=== PATIENT | male | born 1960 | race American Indian/Alaskan Native ===

== ENCOUNTER 2017-09-22 17:11 | Emergency (ER) | payer OTHER, MEDICAID ==
[2017-09-22 17:47] VITALS: BP 120/70
[2017-09-22] MEDS ORDERED: ASPIRIN PO ONE (17:47)
[2017-09-23] MEDS ORDERED: NITROGLYCERIN SYRINGE 0 ML ONE (09:38)
[2017-09-23] MEDS ORDERED: XYLOCAINE 2% INFILTRATI ONE (09:38)
[2017-09-23] MEDS ORDERED: HEPARIN/NS 5000 UNIT/500ML(CATH LAB) 0 ML IR ONE (09:38)
[2017-09-23] MEDS ORDERED: CALAN ONE (09:38)
[2017-09-23] MEDS ORDERED: HEPARIN 10,000 UNITS/10 ML ONE (09:38)
[2017-09-23] MEDS ORDERED: VERSED ONE (09:39)
[2017-09-23] MEDS ORDERED: SUBLIMAZE ONE (09:39)
== END 2017-09-22 23:44 | disposition left against medical advice (07) ==
LOC: ED 17:11
DX: R07.89 Other chest pain (principal); Z53.21 Procedure and treatment not carried out due to patient leaving prior to being seen by health care provider
CPT/HCPCS: 93005; 93010; J1644; J2250; J3010

== ENCOUNTER 2018-04-02 08:24 | Inpatient (IN) | payer MEDICAID ==
[2018-04-02] MEDS ORDERED: ASPIRIN PO ONE (09:18)
--- NOTE | 2018-04-02 09:24 | Emergency Department Report ---
Blank Doc - Documentation Documentation: Mr. Dee is 57 years old male history of hypertension, diabetes and DVT. Patient presented to the ER complaining of left leg pain and left shoulder pain and right chest pain associated with shortness of breath. Patient stated that he was diagnosed with DVT 2 years ago in his right leg and he had surgery for that and he was never been on any blood thinner before. Patient presentation is suspicious for PE, DVT or possibly coronary artery disease. Patient will need to be many in our main ED.
[2018-04-02 09:47] LABS: Basophils # (Auto) 0.1 K/mm3 (0.0-0.1); Eosinophils # (Auto) 0.2 K/mm3 (0.0-0.4); Eosinophils % (Auto) 3.1 % (0.0-4.3); Hematocrit 38.3 % (35.5-45.6); Hemoglobin 13.3 gm/dl (11.8-15.2); Lymphocytes % (Auto) 32.8 % (13.4-35.0); Mean Corpuscular HGB Conc 35 % (32-34); Mean Corpuscular Hemoglobin 33 pg (28-32); Mean Corpuscular Volume 96 fl (84-94); Monocytes # (Auto) 0.7 K/mm3 (0.0-0.8); Monocytes % (Auto) 11.3 % (0.0-7.3); Platelet Count 169 K/mm3 (140-440); Red Blood Count 4.01 M/mm3 (3.65-5.03); Red Cell Distribution Width 15.3 % (13.2-15.2)
[2018-04-02 09:59] LABS: INR 0.95 (0.87-1.13)
[2018-04-02 10:00] LABS: Partial Thromboplastin Time 36.2 Sec. (24.2-36.6)
[2018-04-02 10:19] LABS: Alanine Aminotransferase 12 units/L (7-56); BUN/Creatinine Ratio 14; Blood Urea Nitrogen 13 mg/dL (9-20); Calcium 9.7 mg/dL (8.4-10.2); Hemolysis Index 6
[2018-04-02 10:30] LABS: Chol/HDL Ratio 7.42 %; HDL Cholesterol 38 mg/dL (40-59); LDL Cholesterol,Direct 232 mg/dL (50-130)
[2018-04-02] MEDS ORDERED: LOVENOX SUB-Q ONE (10:31)
--- NOTE | 2018-04-02 10:41 | XRay Report ---
ROUTINE CHEST, TWO VIEWS: HISTORY: chest pain. The trachea, heart, mediastinal contour, lung flower and bony thorax are unremarkable. IMPRESSION: Unremarkable chest x-ray.
--- NOTE | 2018-04-02 10:54 | Emergency Department Report ---
ED Chest Pain HPI - General Chief Complaint: Extremity Problem,Nontraumatic Stated Complaint: CHEST PAIN/LEG PAIN Time Seen by Provider: 04/02/18 09:14 Source: patient Mode of arrival: Ambulatory Limitations: No Limitations - History of Present Illness Initial Comments: 57-year-old male with a past medical history of obesity, hypertension, DVT 2 years ago (2015) presents to the hospital complains of pain to left leg times approximately 4 days. Pain is constant and worse with ambulation remained moderate to severe in intensity. Patient also states he is having a right sided chest pain and shortness of breath with exertion. He complains of chronic left shoulder pain secondary to previous injury. Patient is a history of DVT 2 years ago that he states was treated with a procedure he did not require anticoagulation. He denies recent long distance travel - Related Data Home Medications Medication Instructions Recorded Confirmed Last Taken Lisinopril/Hydrochlorothiazide 1 tab PO DAILY 04/02/18 04/02/18 Unknown [Zestoretic 20-25 mg] amLODIPine [Norvasc] 10 mg PO DAILY 04/02/18 04/02/18 Unknown Allergies Allergy/AdvReac Type Severity Reaction Status Date / Time No Known Allergies Allergy Verified 09/23/17 10:39 Heart Score - HEART Score History: Slightly suspicious EKG: Normal Age: 45-65 Risk factors: 1-2 risk factors Troponin: 1-3x normal limit HEART Score: 3 ED Review of Systems ROS: Stated complaint: CHEST PAIN/LEG PAIN Other details as noted in HPI Comment: All other systems reviewed and negative ED Past Medical Hx - Past Medical History Previous Medical History?: Yes Hx Hypertension: Yes Additional medical history: Hx of DVT - Social History Smoking Status: Current Every Day Smoker Substance Use Type: Alcohol - Medications Home Medications: Home Medications Medication Instructions Recorded Confirmed Last Taken Type Lisinopril/Hydrochlorothiazide 1 tab PO DAILY 04/02/18 04/02/18 Unknown History [Zestoretic 20-25 mg] amLODIPine [Norvasc] 10 mg PO DAILY 04/02/18 04/02/18 Unknown History ED Physical Exam - General Limitations: No Limitations - Other Other exam information: General: No limitations, patient is alert in no acute distress Head exam: Atraumatic, normocephalic Eyes exam: Normal appearance ENT: Moist mucous membrane, normal oropharynx Neck exam: Normal inspection, full range of motion, no meningismus nontender Respiratory exam: Bilateral rhonchi, chest wall nontender Cardiovascular: Normal rate and rhythm, normal heart sounds Abdomen: Soft, nondistended, and nontender, with normal bowel sounds, no rebound, or, left Swelling and tenderness posterior left thigh, popliteal, left Area. 2+ DP pulse equal bilaterally. Extremity: Pain with left shoulder mvt, no deformity Back: Normal Inspection, full range of motion, no tenderness Neurologic: Alert, oriented x3, cranial nerves intact, no motor or sensory deficit Psychiatric: normal affect, normal mood Skin: Warm, dry, intact ED Course Vital Signs 04/02/18 04/02/18 04/02/18 08:35 10:29 10:30 Temperature 97.8 F Pulse Rate 77 Respiratory 18 Rate Blood Pressure 163/99 141/73 141/73 Blood Pressure [Left] O2 Sat by Pulse 100 99 99 Oximetry 04/02/18 04/02/18 04/02/18 10:46 11:13 11:15 Temperature Pulse Rate 57 L 67 63 Respiratory 10 L 24 12 Rate Blood Pressure 141/73 Blood Pressure [Left] O2 Sat by Pulse 98 98 98 Oximetry 04/02/18 04/02/18 04/02/18 11:22 11:44 11:46 Temperature Pulse Rate Respiratory Rate Blood Pressure 154/89 154/89 Blood Pressure 141/73 [Left] O2 Sat by Pulse 99 100 Oximetry 04/02/18 04/02/18 04/02/18 11:59 12:00 12:16 Temperature Pulse Rate 58 L Respiratory 18 Rate Blood Pressure 154/89 154/89 Blood Pressure 154/89 [Left] O2 Sat by Pulse 99 98 99 Oximetry 04/02/18 04/02/18 04/02/18 12:30 12:46 13:00 Temperature Pulse Rate Respiratory Rate Blood Pressure 154/89 124/74 124/74 Blood Pressure [Left] O2 Sat by Pulse 96 100 95 Oximetry 04/02/18 04/02/18 04/02/18 13:16 13:30 13:46 Temperature Pulse Rate Respiratory Rate Blood Pressure 124/74 124/74 125/82 Blood Pressure [Left] O2 Sat by Pulse 99 98 96 Oximetry 04/02/18 04/02/18 04/02/18 14:00 14:16 14:30 Temperature Pulse Rate Respiratory Rate Blood Pressure 125/82 125/82 125/82 Blood Pressure [Left] O2 Sat by Pulse 99 99 96 Oximetry 04/02/18 14:55 Temperature Pulse Rate 64 Respiratory 18 Rate Blood Pressure Blood Pressure [Left] O2 Sat by Pulse 95 Oximetry - Consultations Consultation #1: 04/02/18 11:30 Case d/w Dr berry (vascular), will consult BRIGHT score - Bright Score Age > 65: (0) No Aspirin use within the Past 7 Days: (0) No 3 or more CAD Risk Factors: (0) No 2 or more Angina events in past 24 hrs: (0) No Known CAD with more than 50% Stenosis: (0) No Elevated Cardiac Markers: (1) Yes ST Deviation Greater than 0.5mm: (0) No BRIGHT Score: 1 ED Medical Decision Making - Lab Data Result diagrams: 04/02/18 09:26 04/02/18 09:26 Lab Results 04/02/18 04/02/18 04/02/18 Range/Units 09:26 09:26 09:26 WBC 6.0 (4.5-11.0) K/mm3 RBC 4.01 (3.65-5.03) M/mm3 Hgb 13.3 (11.8-15.2) gm/dl Hct 38.3 (35.5-45.6) % MCV 96 H (84-94) fl MCH 33 H (28-32) pg MCHC 35 H (32-34) % RDW 15.3 H (13.2-15.2) % Plt Count 169 (140-440) K/mm3 Lymph % (Auto) 32.8 (13.4-35.0) % [place] % (Auto) 11.3 H (0.0-7.3) % Eos % (Auto) 3.1 (0.0-4.3) % Baso % (Auto) 1.0 (0.0-1.8) % Lymph # 2.0 (1.2-5.4) K/mm3 [place] # 0.7 (0.0-0.8) K/mm3 Eos # 0.2 (0.0-0.4) K/mm3 Baso # 0.1 (0.0-0.1) K/mm3 Seg Neutrophils % 51.8 (40.0-70.0) % Seg Neutrophils # 3.1 (1.8-7.7) K/mm3 PT 13.1 (12.2-14.9) Sec. INR 0.95 (0.87-1.13) APTT 36.2 (24.2-36.6) Sec. D-Dimer 4784.41 H (0-234) ng/mlDDU Sodium 142 (137-145) mmol/L Potassium 4.0 (3.6-5.0) mmol/L Chloride 103.7 (98-107) mmol/L Carbon Dioxide 25 (22-30) mmol/L Anion Gap 17 mmol/L BUN 13 (9-20) mg/dL Creatinine 0.9 (0.8-1.5) mg/dL Estimated GFR > 60 ml/min BUN/Creatinine Ratio 14 % Glucose 81 (75-100) mg/dL Calcium 9.7 (8.4-10.2) mg/dL Total Bilirubin 0.40 (0.1-1.2) mg/dL AST 13 (5-40) units/L ALT 12 (7-56) units/L Alkaline Phosphatase 89 (35-129) units/L Troponin T 0.038 H (0.00-0.029) ng/mL Total Protein 7.4 (6.3-8.2) g/dL Albumin 4.0 (3.9-5) g/dL Albumin/Globulin Ratio 1.2 % Triglycerides 98 (2-149) mg/dL Cholesterol 282 H (50-199) mg/dL LDL Cholesterol Direct 232 H (50-130) mg/dL HDL Cholesterol 38 L (40-59) mg/dL Cholesterol/HDL Ratio 7.42 % - EKG Data -: EKG Interpreted by [facility] EKG shows normal: sinus rhythm, axis (qrs 43), QRS complexes (qrsd 74), ST-T waves (no stemi/t inv) Rate: normal (69) - Radiology Data Radiology results: report reviewed ROUTINE CHEST, TWO VIEWS: HISTORY: chest pain. The trachea, heart, mediastinal contour, lung jarquin and bony thorax are unremarkable. IMPRESSION: Unremarkable chest x-ray. VASCULAR LAB.PRELIMINARY REPORT. LLE VENOUS DUPLEX DONE. EVIDENCE OF ACUTE DVT IN THE LT.MID SFV EXTENDING ALL THE WAY DOWN TO THE LT.PTV/PERONEAL VEINS AT DISTAL CALF. INFORMED AT 0951. CTA CHEST: HISTORY: Chest pain, shortness of breath. COMPARISON: Chest x-ray performed the same day. TECHNIQUE: Helical CT in 1.25mm intervals following IV contrast. Pulmonary embolus protocol. Sagittal and coronal reformatted images. Rotational MIP images. FINDINGS: Contrast bolus is satisfactory. Nonocclusive pulmonary emboli are identified in the second and third order branches of the left lower lobe, lingula and right lower lobe. No large saddle or occlusive embolus. Thyroid gland: Normal. Tracheobronchial tree: Normal. Esophagus: Normal. Heart: Normal. Pericardium: Normal. Mediastinum: Normal. Lung Jarquin: normal. Pleural Spaces: Normal. Musculoskeletal: Normal. IMPRESSION: Positive for pulmonary embolus as described above. These findings were discussed with Dr. Blum in the emergency apartment at 1150 hrs. - Medical Decision Making Positive acute left leg DVT. Lovenox given. Asa was given prior to my evaluation. Patient will require admission to the hospital Vascular consulted given size of clot ct angio: + bialteral PE (no saddle) Hospitalist informed - Differential Diagnosis dvt, strain, atypical cp, pe, mi, pneumothorax Critical Care Time: No Critical care attestation.: If time is entered above; I have spent that time in minutes in the direct care of this critically ill patient, excluding procedure time. ED Disposition Clinical Impression: Acute deep vein thrombosis (DVT) of left lower extremity, Bilateral pulmonary embolism, Elevated troponin HTN (hypertension) Qualifiers: Hypertension type: essential hypertension Qualified Code(s): I10 - Essential ( primary) hypertension Disposition: OP ADMIT IP TO THIS HOSP Is pt being admited?: Yes Condition: Stable Time of Disposition: 12:09 (Dr Dykes/hosp)
--- NOTE | 2018-04-02 12:10 | Cat Scan Report ---
CTA CHEST: HISTORY: Chest pain, shortness of breath. COMPARISON: Chest x-ray performed the same day. TECHNIQUE: Helical CT in 1.25mm intervals following IV contrast. Pulmonary embolus protocol. Sagittal and coronal reformatted images. Rotational MIP images. FINDINGS: Contrast bolus is satisfactory. Nonocclusive pulmonary emboli are identified in the second and third order branches of the left lower lobe, lingula and right lower lobe. No large saddle or occlusive embolus. Thyroid gland: Normal. Tracheobronchial tree: Normal. Esophagus: Normal. Heart: Normal. Pericardium: Normal. Mediastinum: Normal. Lung Jarquin: normal. Pleural Spaces: Normal. Musculoskeletal: Normal. IMPRESSION: Positive for pulmonary embolus as described above. These findings were discussed with Dr. Blum in the emergency apartment at 1150 hrs.
[2018-04-02] MEDS ORDERED: NORCO 5/325 PO ONE (12:13)
--- NOTE | 2018-04-02 12:35 | History and Physical Report ---
Medications and Allergies Allergies Allergy/AdvReac Type Severity Reaction Status Date / Time No Known Allergies Allergy Verified 09/23/17 10:39 Exam - Constitutional Vitals: Temp Pulse Resp BP Pulse Ox 97.8 F 58 L 18 154/89 99 04/02/18 08:35 04/02/18 11:59 04/02/18 11:59 04/02/18 11:59 04/02/18 11:59 Results - Labs CBC & Chem 7: 04/02/18 09:26 04/02/18 09:26 Labs: Abnormal lab results 04/02/18 04/02/18 04/02/18 Range/Units 09:26 09:26 09:26 MCV 96 H (84-94) fl MCH 33 H (28-32) pg MCHC 35 H (32-34) % RDW 15.3 H (13.2-15.2) % [place] % (Auto) 11.3 H (0.0-7.3) % D-Dimer 4784.41 H (0-234) ng/mlDDU Troponin T 0.038 H (0.00-0.029) ng/mL Cholesterol 282 H (50-199) mg/dL LDL Cholesterol Direct 232 H (50-130) mg/dL HDL Cholesterol 38 L (40-59) mg/dL
--- NOTE | 2018-04-02 12:50 | History and Physical Report ---
History of Present Illness Chief complaint: My leg hurts History of present illness: 57 YO Male with HTN, Obesity, History of DVT, Nicotine Dependence presents to ED for evaluation. Pt states that he has experienced pain in his Left leg with unilateral leg swelling for the past 4 days with persistent symptoms over the same time frame. Pt also acknowledges shortness of breath and chest discomfort associated with deep breathing. Pt denies fever, chills, palpitations, NVD, Syncope, productive cough, brbpr, unintentional weight loss, or night sweats. PT seen and evaluated in ED and found to have LLE DVT as well as Bilateral Pulmonary Emboli. Pt started on therapeutic anticoagulation and admitted to medical floor. Past History Past Medical History: DVT, hypertension Past Surgical History: No surgical history, Other (reviewed) Social history: smoking Family history: hypertension Medications and Allergies Allergies Allergy/AdvReac Type Severity Reaction Status Date / Time No Known Allergies Allergy Verified 09/23/17 10:39 Home Medications Medication Instructions Recorded Confirmed Last Taken Type Lisinopril/Hydrochlorothiazide 1 tab PO DAILY 04/02/18 04/02/18 Unknown History [Zestoretic 20-25 mg] amLODIPine [Norvasc] 10 mg PO DAILY 04/02/18 04/02/18 Unknown History Review of Systems Constitutional: no weight loss, no weight gain, no fever, no chills Ears, nose, mouth and throat: no ear pain, no ear discharge, no tinnitis, no decreased hearing, no nose pain, no nasal congestion Cardiovascular: shortness of breath, no palpitations Respiratory: shortness of breath, pleurisy, pain on inspiration, no hemoptysis Gastrointestinal: no abdominal pain, no nausea, no vomiting, no diarrhea, no constipation Genitourinary Male: no hematuria, no flank pain, no discharge, no urinary frequency, no urinary hesitancy, no nocturia Rectal: no pain, no incontinence, no bleeding Musculoskeletal: no neck stiffness, no neck pain, no shooting arm pain, no arm numbness/tingling, no low back pain, no shooting leg pain Integumentary: no rash, no pruritis, no redness, no sores, no wounds Neurological: no transient paralysis, no paralysis, no weakness, no parathesias , no numbness, no tingling Psychiatric: no anxiety, no memory loss, no change in sleep habits, no sleep disturbances, no insomnia, no hypersomnia, no change in appetite, no change in libido Endocrine: no cold intolerance, no heat intolerance, no polyphagia, no excessive thirst, no polydipsia, no polyuria Hematologic/Lymphatic: no easy bruising, no easy bleeding, no lymphadenopathy, no lymphedema Allergic/Immunologic: no urticaria, no allergic rhinitis, no wheezing, no persistent infections, no anaphylaxis Exam - Constitutional Vitals: Temp Pulse Resp BP Pulse Ox 97.8 F 58 L 18 154/89 99 04/02/18 08:35 04/02/18 11:59 04/02/18 11:59 04/02/18 11:59 04/02/18 11:59 General appearance: Present: mild distress, obese - EENT Eyes: Present: PERRL ENT: hearing intact, clear oral mucosa - Neck Neck: Present: supple, normal ROM - Respiratory Respiratory effort: normal Respiratory: bilateral: diminished - Cardiovascular Heart Sounds: Present: S1 & S2. Absent: rub, click - Extremities Extremities: pulses symmetrical, No edema Peripheral Pulses: within normal limits - Abdominal General gastrointestinal: Present: soft, non-tender, non-distended, normal bowel sounds Male genitourinary: Present: normal - Integumentary Integumentary: Present: clear, warm, dry - Musculoskeletal Musculoskeletal: gait normal, strength equal bilaterally - Psychiatric Psychiatric: appropriate mood/affect, intact judgment & insight - Neurologic Neurologic: CNII-XII intact, moves all extremities Results - Labs CBC & Chem 7: 04/02/18 09:26 04/02/18 09:26 Labs: Abnormal lab results 04/02/18 04/02/18 04/02/18 Range/Units 09:26 09:26 09:26 MCV 96 H (84-94) fl MCH 33 H (28-32) pg MCHC 35 H (32-34) % RDW 15.3 H (13.2-15.2) % [place] % (Auto) 11.3 H (0.0-7.3) % D-Dimer 4784.41 H (0-234) ng/mlDDU Troponin T 0.038 H (0.00-0.029) ng/mL Cholesterol 282 H (50-199) mg/dL LDL Cholesterol Direct 232 H (50-130) mg/dL HDL Cholesterol 38 L (40-59) mg/dL Assessment and Plan - Patient Problems (1) Respiratory failure Current Visit: Yes Status: Acute Qualifiers: Chronicity: acute Respiratory failure complication: hypoxia Qualified Code(s): J96.01 - Acute respiratory failure with hypoxia Plan to address problem: Supplemental oxygen, nebulizer therapy, NIPPV as clinically indicated, early ambulation, therapeutic anticoagulation. (2) Nicotine dependence unspecified, with withdrawal Current Visit: Yes Status: Acute Qualifiers: Nicotine product type: cigarettes Qualified Code(s): F17.213 - Nicotine dependence, cigarettes, with withdrawal Plan to address problem: smoking cessation counseling, (3) Acute deep vein thrombosis (DVT) of left lower extremity Current Visit: Yes Status: Acute Plan to address problem: Therapeutic anticoagulation, Vascular surgery consulted in ED (4) Bilateral pulmonary embolism Current Visit: Yes Status: Acute Plan to address problem: supplemental oxygen, nebulizer therapy, supportive care, Echo, therapeutic anticoagulation. (5) HTN (hypertension) Current Visit: Yes Status: Acute Qualifiers: Hypertension type: essential hypertension Qualified Code(s): I10 - Essential (primary) hypertension Plan to address problem: monitor bp q shift, continue medical management. (6) DVT prophylaxis Current Visit: Yes Status: Acute Plan to address problem: SCD to BLE while in bed
[2018-04-02] MEDS ORDERED: SODIUM CHLORIDE FLUSH SYRINGE 10 ML IV PRN (12:52)
[2018-04-02] MEDS ORDERED: PROVENTIL IH PRN (12:52)
[2018-04-02] MEDS ORDERED: TYLENOL PO PRN (12:52)
[2018-04-02] MEDS ORDERED: ZOFRAN IV PRN (12:52)
--- NOTE | 2018-04-02 13:21 | Consultation ---
History of Present Illness - Reason for Consult Consult date: 04/02/18 DVT Requesting physician: LILIYA LEON - History of Present Illness a 57-year-old male admitted to the emergency room for evaluation of left leg pain and shoulder pain. He underwent a venous ultrasound which revealed deep vein thrombosis of the lower extremity. He has a CT scan of the chest, which reveals pulmonary emboli. The patient has complaints of chest pain as well as lower extremity pain. He reportedly has a history of previous deep vein thrombosis. Past History Past Medical History: DVT Medications and Allergies Allergies Allergy/AdvReac Type Severity Reaction Status Date / Time No Known Allergies Allergy Verified 09/23/17 10:39 Active Meds: Active Medications Acetaminophen (Tylenol) 650 mg PO Q4H PRN PRN Reason: Pain MILD(1-3)/Fever >100.5/GONZALES Albuterol (Proventil) 2.5 mg IH Q4HRT PRN PRN Reason: Shortness Of Breath Ondansetron HCl (Zofran) 4 mg IV Q8H PRN PRN Reason: Nausea And Vomiting Sodium Chloride (Sodium Chloride Flush Syringe 10 Ml) 10 ml IV BID CRISTI Sodium Chloride (Sodium Chloride Flush Syringe 10 Ml) 10 ml IV PRN PRN PRN Reason: LINE FLUSH Review of Systems All systems: negative Exam - Constitutional Vitals: Temp Pulse Resp BP Pulse Ox 97.8 F 58 L 18 154/89 99 04/02/18 08:35 04/02/18 11:59 04/02/18 11:59 04/02/18 11:59 04/02/18 11:59 General appearance: Present: mild distress - EENT Eyes: Present: PERRL - Neck Neck: Present: supple - Respiratory Respiratory effort: normal - Cardiovascular Rhythm: regular - Extremities Extremity abnormal: edema (2+ bilateral edema) Results - Labs CBC & Chem 7: 04/02/18 09:26 04/02/18 09:26 Labs: Abnormal lab results 04/02/18 04/02/18 04/02/18 Range/Units 09:26 09:26 09:26 MCV 96 H (84-94) fl MCH 33 H (28-32) pg MCHC 35 H (32-34) % RDW 15.3 H (13.2-15.2) % [place] % (Auto) 11.3 H (0.0-7.3) % D-Dimer 4784.41 H (0-234) ng/mlDDU Troponin T 0.038 H (0.00-0.029) ng/mL Cholesterol 282 H (50-199) mg/dL LDL Cholesterol Direct 232 H (50-130) mg/dL HDL Cholesterol 38 L (40-59) mg/dL Assessment and Plan - Patient Problems (1) Acute deep vein thrombosis (DVT) of left lower extremity Current Visit: Yes Status: Acute Plan to address problem: 1. The patient has uncomplicated deep vein thrombosis of the left lower extremity, I recommend anticoagulation therapy. No indication for surgical intervention. 2. Bilateral subsegmental pulmonary emboli also treated with anticoagulation, there is no evidence of a central embolus no indication for catheter-directed thrombolysis
[2018-04-03] MEDS: NORCO 5/325 PO PRN ×3 (00:20→21:42)
[2018-04-03] MEDS: SODIUM CHLORIDE FLUSH SYRINGE 10 ML IV SCH ×3 (00:20→21:45)
[2018-04-03 01:37] LABS: BUN/Creatinine Ratio 13; Blood Urea Nitrogen 12 mg/dL (9-20); Calcium 9.3 mg/dL (8.4-10.2); Hemolysis Index 8
--- NOTE | 2018-04-03 09:04 | Progress Note ---
Assessment and Plan Assessment and plan: --Acute hypoxic respiratory failure; secondary to bilateral PE Oxygen titrated to O2 sats more than 90%, nebulizers as needed Active care --Bilateral pulmonary embolism; Oxygen, heparin drip, fortification Vascular evaluated the patient no indication for catheter directed thrombolysis Start oral anticoagulants when patient is stable, hematology consult hyper coag w/u --Left Lower extremity DVT; Continue heparin drip, elevate the limb and supportive care --Hypertension; moderate control, continue current antihypertensives and when necessary medications --DVT prophylaxis; patient already on heparin drip --Ongoing tobacco use; smoking cessation counseling, nicotine patch as needed Closely monitor the patient and adjust management as needed History Interval history: Patient seen and examined medical records reviewed No new events reported Patient with bilateral PE and lower extremity DVT On full anticoagulation with Lovenox Denies chest pain or shortness of breath Vital signs reviewed Hospitalist Physical - Constitutional Vitals: Temp Pulse Resp BP Pulse Ox 98.0 F 65 18 134/83 98 04/03/18 05:46 04/03/18 05:46 04/03/18 05:46 04/03/18 05:46 04/03/18 05:46 General appearance: Present: mild distress, obese - EENT Eyes: Present: PERRL, EOM intact - Neck Neck: Present: supple, normal ROM - Respiratory Respiratory effort: normal Respiratory: bilateral: diminished, negative: rales, rhonchi, wheezing - Cardiovascular Rhythm: regular Heart Sounds: Present: S1 & S2 - Extremities Extremities: no ischemia, No edema - Abdominal General gastrointestinal: soft, non-tender, non-distended, normal bowel sounds - Integumentary Integumentary: Present: clear, warm - Psychiatric Psychiatric: appropriate mood/affect, cooperative - Neurologic Neurologic: CNII-XII intact, moves all extremities Results - Labs CBC & Chem 7: 04/02/18 09:26 04/03/18 00:37 Labs: Laboratory Last Values WBC 6.0 K/mm3 (4.5-11.0) 04/02/18 09:26 RBC 4.01 M/mm3 (3.65-5.03) 04/02/18 09:26 Hgb 13.3 gm/dl (11.8-15.2) 04/02/18 09:26 Hct 38.3 % (35.5-45.6) 04/02/18 09:26 MCV 96 fl (84-94) H 04/02/18 09:26 MCH 33 pg (28-32) H 04/02/18 09: MCHC 35 % (32-34) H 04/02/18 09: RDW 15.3 % (13.2-15.2) H 04/02/18 09:26 Plt Count 169 K/mm3 (140-440) 04/02/18 09: Lymph % (Auto) 32.8 % (13.4-35.0) 04/02/18 09: [place] % (Auto) 11.3 % (0.0-7.3) H 04/02/18 09: Eos % (Auto) 3.1 % (0.0-4.3) 04/02/18 09: Baso % (Auto) 1.0 % (0.0-1.8) 04/02/18 09: Lymph # 2.0 K/mm3 (1.2-5.4) 04/02/18 09: [place] # 0.7 K/mm3 (0.0-0.8) 04/02/18 09: Eos # 0.2 K/mm3 (0.0-0.4) 04/02/18 09: Baso # 0.1 K/mm3 (0.0-0.1) 04/02/18 09: Seg Neutrophils % 51.8 % (40.0-70.0) 04/02/18 09: Seg Neutrophils # 3.1 K/mm3 (1.8-7.7) 04/02/18 09: PT 13.1 Sec. (12.2-14.9) 04/02/18 09: INR 0.95 (0.87-1.13) 04/02/18 09: APTT 36.2 Sec. (24.2-36.6) 04/02/18 09: D-Dimer 4784.41 ng/mlDDU (0-234) H 04/02/18 09:26 Sodium 138 mmol/L (137-145) 04/03/18 00:37 Potassium 4.2 mmol/L (3.6-5.0) 04/03/18 00:37 Chloride 101.1 mmol/L (98-107) 04/03/18 00:37 Carbon Dioxide 23 mmol/L (22-30) 04/03/18 00:37 Anion Gap 18 mmol/L 04/03/18 00:37 BUN 12 mg/dL (9-20) 04/03/18 00:37 Creatinine 0.9 mg/dL (0.8-1.5) 04/03/18 00:37 Estimated GFR > 60 ml/min 04/03/18 00:37 BUN/Creatinine Ratio 13 % 04/03/18 00:37 Glucose 128 mg/dL (75-100) H 04/03/18 00:37 Calcium 9.3 mg/dL (8.4-10.2) 04/03/18 00:37 Magnesium 1.70 mg/dL (1.7-2.3) 04/03/18 00:37 Total Bilirubin 0.40 mg/dL (0.1-1.2) 04/02/18 09:26 AST 13 units/L (5-40) 04/02/18 09:26 ALT 12 units/L (7-56) 04/02/18 09:26 Alkaline Phosphatase 89 units/L (35-129) 04/02/18 09:26 Troponin T < 0.010 ng/mL (0.00-0.029) 04/02/18 09:26 Total Protein 7.4 g/dL (6.3-8.2) 04/02/18 09:26 Albumin 4.0 g/dL (3.9-5) 04/02/18 09:26 Albumin/Globulin Ratio 1.2 % 04/02/18 09:26 Triglycerides 98 mg/dL (2-149) 04/02/18 09:26 Cholesterol 282 mg/dL (50-199) H 04/02/18 09:26 LDL Cholesterol Direct 232 mg/dL (50-130) H 04/02/18 09:26 HDL Cholesterol 38 mg/dL (40-59) L 04/02/18 09:26 Cholesterol/HDL Ratio 7.42 % 04/02/18 09:26
[2018-04-03] MEDS ORDERED: NON-FORMULARY (Lisinopril/Hydrochlorothiazide [Zestoretic 20-25 Mg] 1 TAB) PO SCH (10:00)
[2018-04-03] MEDS: HCTZ PO SCH (10:01)
[2018-04-03] MEDS: NORVASC PO SCH (10:02)
[2018-04-03] MEDS: ZESTRIL PO SCH (10:02)
[2018-04-03] MEDS ORDERED: LOVENOX SUB-Q ONE (11:32)
[2018-04-03] MEDS: LOVENOX SUB-Q SCH (21:44)
[2018-04-03] MEDS ORDERED: LOVENOX SUB-Q SCH (22:00)
--- NOTE | 2018-04-04 09:03 | Progress Note ---
Assessment and Plan Assessment and plan: --Bilateral pulmonary embolism; Oxygen, Lovenox full dose, Vascular evaluated the patient no indication for catheter directed thrombolysis Start oral anticoagulants when patient is stable, hematology evaluation And recommendation noted and appreciated, follow hypercoagulable workup --Acute hypoxic respiratory failure; secondary to bilateral PE Oxygen titrated to O2 sats more than 90%, nebulizers as needed --Left Lower extremity DVT; Continue heparin drip, elevate the limb and supportive care --Hypertension; well controlled --DVT prophylaxis; patient already on heparin drip --Ongoing tobacco use; smoking cessation counseling, nicotine patch as needed Will switch to Eliquis / coumadin when patient is stable Possible discharge in 1-2 days if stable Plan of care reviewed with the patient and the medical auditor History Interval history: Patient seen and examined medical records reviewed No new events reported by the nursing staff Patient feels slightly better On full dose Lovenox Alert awake oriented 3 not in acute distress Hospitalist Physical - Constitutional Vitals: Temp Pulse Resp BP Pulse Ox 99.1 F 61 24 139/68 97 04/04/18 05:24 04/04/18 05:24 04/04/18 05:24 04/04/18 05:24 04/04/18 05:24 General appearance: Present: no acute distress, obese - EENT Eyes: Present: PERRL, EOM intact - Neck Neck: Present: supple, normal ROM - Respiratory Respiratory effort: normal Respiratory: bilateral: diminished, negative: rales, rhonchi, wheezing - Cardiovascular Rhythm: regular Heart Sounds: Present: S1 & S2 - Extremities Extremities: no ischemia Peripheral Pulses: within normal limits - Abdominal General gastrointestinal: soft, non-tender, non-distended, normal bowel sounds - Integumentary Integumentary: Present: clear, warm - Psychiatric Psychiatric: appropriate mood/affect, cooperative - Neurologic Neurologic: CNII-XII intact, moves all extremities Results - Labs CBC & Chem 7: 04/02/18 09:26 04/03/18 00:37 Labs: Laboratory Last Values WBC 6.0 K/mm3 (4.5-11.0) 04/02/18 09:26 RBC 4.01 M/mm3 (3.65-5.03) 04/02/18 09:26 Hgb 13.3 gm/dl (11.8-15.2) 04/02/18 09:26 Hct 38.3 % (35.5-45.6) 04/02/18 09: MCV 96 fl (84-94) H 04/02/18 09: MCH 33 pg (28-32) H 04/02/18 09: MCHC 35 % (32-34) H 04/02/18 09: RDW 15.3 % (13.2-15.2) H 04/02/18 09: Plt Count 169 K/mm3 (140-440) 04/02/18 09: Lymph % (Auto) 32.8 % (13.4-35.0) 04/02/18 09: [place] % (Auto) 11.3 % (0.0-7.3) H 04/02/18: Eos % (Auto) 3.1 % (0.0-4.3) 04/02/18 09: Baso % (Auto) 1.0 % (0.0-1.8) 04/02/18 09: Lymph # 2.0 K/mm3 (1.2-5.4) 04/02/18 09: [place] # 0.7 K/mm3 (0.0-0.8) 04/02/18 09: Eos # 0.2 K/mm3 (0.0-0.4) 04/02/18 09: Baso # 0.1 K/mm3 (0.0-0.1) 04/02/18 09: Seg Neutrophils % 51.8 % (40.0-70.0) 04/02/18 09: Seg Neutrophils # 3.1 K/mm3 (1.8-7.7) 04/02/18 09: PT 13.1 Sec. (12.2-14.9) 04/02/18 09: INR 0.95 (0.87-1.13) 04/02/18 09: APTT 36.2 Sec. (24.2-36.6) 04/02/18 09: D-Dimer 4784.41 ng/mlDDU (0-234) H 04/02/18 09:26 Sodium 138 mmol/L (137-145) 04/03/18 00:37 Potassium 4.2 mmol/L (3.6-5.0) 04/03/18 00:37 Chloride 101.1 mmol/L (98-107) 04/03/18 00:37 Carbon Dioxide 23 mmol/L (22-30) 04/03/18 00:37 Anion Gap 18 mmol/L 04/03/18 00:37 BUN 12 mg/dL (9-20) 04/03/18 00:37 Creatinine 0.9 mg/dL (0.8-1.5) 04/03/18 00:37 Estimated GFR > 60 ml/min 04/03/18 00:37 BUN/Creatinine Ratio 13 % 04/03/18 00:37 Glucose 128 mg/dL (75-100) H 04/03/18 00:37 Calcium 9.3 mg/dL (8.4-10.2) 04/03/18 00:37 Magnesium 1.70 mg/dL (1.7-2.3) 04/03/18 00:37 Total Bilirubin 0.40 mg/dL (0.1-1.2) 04/02/18 09:26 AST 13 units/L (5-40) 04/02/18 09:26 ALT 12 units/L (7-56) 04/02/18 09:26 Alkaline Phosphatase 89 units/L (35-129) 04/02/18 09:26 Troponin T < 0.010 ng/mL (0.00-0.029) 04/02/18 09:26 Total Protein 7.4 g/dL (6.3-8.2) 04/02/18 09:26 Albumin 4.0 g/dL (3.9-5) 04/02/18 09:26 Albumin/Globulin Ratio 1.2 % 04/02/18 09:26 Triglycerides 98 mg/dL (2-149) 04/02/18 09:26 Cholesterol 282 mg/dL (50-199) H 04/02/18 09:26 LDL Cholesterol Direct 232 mg/dL (50-130) H 04/02/18 09:26 HDL Cholesterol 38 mg/dL (40-59) L 04/02/18 09:26 Cholesterol/HDL Ratio 7.42 % 04/02/18 09:26
--- NOTE | 2018-04-04 09:32 | Consultation ---
History of Present Illness - Reason for Consult Consult date: 04/04/18 hypercoag. Requesting physician: NATTY HIGGINS - History of Present Illness Thank you for this consult, patient seen/examined, records reviewed, case d/w patient, with hx of right leg DVT, ?IVC filter, yrs ago, was not on anti coags, as per patient, very poor historian. This time, presented with left leg DVT, and B/L PE. Family hx of DVT,, and cancer.pls see full w/up including hypercoag profile already ordered.not a candidate for any Vascular invasive procedure.Continue anti coagulation IV heparin for now, and eventually to any of the new generation anti coags.of your choice. Will di Xry to see if any previous IVC filter in place. Past History Past Medical History: DVT Past Surgical History: No surgical history, Other (reviewed) Social history: smoking Family history: cancer, hypertension Medications and Allergies Allergies Allergy/AdvReac Type Severity Reaction Status Date / Time No Known Allergies Allergy Verified 09/23/17 10:39 Home Medications Medication Instructions Recorded Confirmed Last Taken Type Lisinopril/Hydrochlorothiazide 1 tab PO DAILY 04/02/18 04/02/18 Unknown History [Zestoretic 20-25 mg] amLODIPine [Norvasc] 10 mg PO DAILY 04/02/18 04/02/18 Unknown History Active Meds: Active Medications Acetaminophen (Tylenol) 650 mg PO Q4H PRN PRN Reason: Pain MILD(1-3)/Fever >100.5/GONZALES Acetaminophen/Hydrocodone Bitart (Arnold 5/325) 1 each PO Q4H PRN PRN Reason: Pain, Moderate (4-6) Last Admin: 04/03/18 21:42 Dose: 1 each Albuterol (Proventil) 2.5 mg IH Q4HRT PRN PRN Reason: Shortness Of Breath Amlodipine Besylate (Norvasc) 10 mg PO DAILY [facility] Last Admin: 04/03/18 10:02 Dose: 10 mg Atorvastatin Calcium (Lipitor) 40 mg PO QHS [facility] Enoxaparin Sodium (Lovenox) 130 mg SUB-Q Q12HR [facility] Last Admin: 04/03/18 21:44 Dose: 130 mg Hydrochlorothiazide (Hctz) 25 mg PO QDAY [facility] Last Admin: 07/21/18 10:01 Dose: 25 mg Lisinopril (Zestril) 20 mg PO QDAY [facility] Last Admin: 04/03/18 10:02 Dose: 20 mg Ondansetron HCl (Zofran) 4 mg IV Q8H PRN PRN Reason: Nausea And Vomiting Sodium Chloride (Sodium Chloride Flush Syringe 10 Ml) 10 ml IV BID [facility] Last Admin: 04/03/18 21:45 Dose: 10 ml Sodium Chloride (Sodium Chloride Flush Syringe 10 Ml) 10 ml IV PRN PRN PRN Reason: LINE FLUSH Review of Systems Constitutional: chronic pain Exam - Constitutional Vitals: Temp Pulse Resp BP Pulse Ox 99.1 F 61 24 139/68 97 04/04/18 05:24 04/04/18 05:24 04/04/18 05:24 04/04/18 05:24 04/04/18 05:24 General appearance: Present: mild distress, well-nourished - EENT Eyes: Present: PERRL ENT: hearing intact, clear oral mucosa - Neck Neck: Present: supple, normal ROM - Respiratory Respiratory effort: normal Respiratory: bilateral: CTA - Cardiovascular Heart Sounds: Present: S1 & S2. Absent: rub, click - Extremities Extremities: pulses symmetrical, No edema Peripheral Pulses: within normal limits - Abdominal General gastrointestinal: Present: soft, non-tender, non-distended, normal bowel sounds Male genitourinary: Present: deferred - Rectal Rectal Exam: deferred - Integumentary Integumentary: Present: clear, warm, dry - Musculoskeletal Musculoskeletal: gait normal, strength equal bilaterally - Psychiatric Psychiatric: appropriate mood/affect, intact judgment & insight - Neurologic Neurologic: CNII-XII intact, moves all extremities Results - Labs CBC & Chem 7: 04/02/18 09:26 04/03/18 00:37 Assessment and Plan - Patient Problems (1) Acute deep vein thrombosis (DVT) of left lower extremity Current Visit: Yes Status: Acute Plan to address problem: see notes. (2) Bilateral pulmonary embolism Current Visit: Yes Status: Acute Plan to address problem: See notes/orders.
[2018-04-04] MEDS: ZESTRIL PO SCH (09:41)
[2018-04-04] MEDS: HCTZ PO SCH (09:41)
[2018-04-04] MEDS: SODIUM CHLORIDE FLUSH SYRINGE 10 ML IV SCH ×2 (09:41→22:45)
[2018-04-04] MEDS: NORVASC PO SCH (09:41)
[2018-04-04] MEDS: LOVENOX SUB-Q SCH ×2 (09:42→22:45)
--- NOTE | 2018-04-04 10:46 | Progress Note ---
Subjective Date of service: 04/04/18 Interval history: CONSULT DICTATED Objective Vital Signs Temp Pulse Resp BP Pulse Ox 04/04/18 05:24 99.1 F 61 24 139/68 97 04/04/18 03:01 24 04/04/18 01:04 64 16 112/64 99 04/03/18 23:22 99.1 F 67 24 120/61 98 04/03/18 21:42 24 04/03/18 18:02 100 04/03/18 18:00 97.9 F 72 20 136/76 97 04/03/18 12:17 98.6 F 65 20 126/67 97 04/03/18 11:05 20
[2018-04-04] MEDS: NORCO 5/325 PO PRN (10:51)
--- NOTE | 2018-04-04 11:05 | Consultation ---
HISTORY OF PRESENT ILLNESS: The patient is a 57-year-old male who was admitted with DVT and pulmonary embolus and Cardiology consult was requested because of second-degree AV block. The patient has a previous history of right leg DVT a few years ago. Now, he comes in with a few days' history of left leg pain, swelling, shortness of breath, and right pleuritic chest pain. He is a longtime smoker and does describe some dyspnea on exertion and easy fatigability. There has been no angina, previous heart issues, palpitations, dizziness, or syncope. There has been no claudication. He does snore, did not describe any excessive daytime sleepiness. He has hypertension and hyperlipidemia. He is a longtime smoker. He is known to Charlie Pyle as his primary care provider. PAST HISTORY: ALLERGIES: None. MEDICATIONS: See the nurse's list. SMOKING: He has been smoking since he was a teenager. FAMILY HISTORY: Noncontributory. Family history is positive for hypertension. OPERATIONS: None. ALCOHOL USE: No heavy use described so far. REVIEW OF SYSTEMS: He did not describe any significant GI, neurologic, , or dermatologic disorders. He states he sleeps 4-6 hours and does snore. He sometimes takes a nap during the day. PHYSICAL EXAMINATION: GENERAL: Well-developed, moderately overweight, in no acute distress. Alert, oriented, cooperative. Mental status normal. EYES, NOSE, AND THROAT: Unremarkable. NECK: Reveals no JVD or bruits. Neck is supple, no masses. LUNGS: Clear. No labored respirations. HEART: Regular rhythm. Soft S4. No murmurs or rubs. ABDOMEN: Soft, nontender, no masses. EXTREMITIES: No cyanosis, clubbing, edema, except for mild left lower leg swelling. SKIN: Clear. DIAGNOSTIC STUDIES: EKG nonspecific ST-T changes. Rhythm strip showed 3 episodes of [place]enckebach with pauses resulting in pauses of between 2 and 2.5 seconds. They do not occur only at night. FINAL IMPRESSION: 1. Type 1 second-degree AV block resulting in pauses between 2 and 2.5 seconds, asymptomatic. This is typically a benign arrhythmia. 2. Deep venous thrombosis and pulmonary embolus: Hemodynamically stable, improved. 3. Nicotine dependence. 4. Hyperlipidemia: Uncontrolled. 5. Hypertension. 6. Obesity. 7. Snoring, possible sleep apnea. PLAN: Discourage smoking, long-term anticoagulation, consider outpatient stress test and sleep study. Note that an echocardiogram was performed that showed normal LV function and no significant valvular heart disease. There was evidence of mild dilatation of the aortic root with calcification of the aortic root. Thank you for this consultation. JOB# [id number] JDS/NTS
--- NOTE | 2018-04-04 14:27 | XRay Report ---
FINAL REPORT EXAM: XR ABDOMEN 1V AP HISTORY: To Evaluate posible ivc filter placement COMPARISON: None. TECHNIQUE: Two views of the abdomen FINDINGS: Nonobstructive bowel gas pattern. No free air. No abnormal calcification. No organomegaly. An IVC filter is not visualized. There is no acute bony or soft tissue abnormality. IMPRESSION: Nonobstructive bowel gas pattern. IVC filter is not visualized.
--- NOTE | 2018-04-05 09:36 | Progress Note ---
Assessment and Plan Acute PE/DVT Hypertension 2nd degree [place]bach with asymptomatic noctural pauses seen on telemetry; likely underlying sleep apnea. no significant pauses while awake Tobacco abuse Obesity Echocardiogram reports evidence of mild dilatation of the aortic root. Normal left ventricular systolic function, ejection fraction 60-65%. Subjective Date of service: 04/05/18 Interval history: Patient complaint of left lower extremity pain. Objective Vital Signs Temp Pulse Pulse Resp Resp BP Pulse Ox 04/05/18 05:06 99.4 F 63 24 124/79 98 04/05/18 03:01 20 04/04/18 22:45 98.6 F 58 L 16 115/73 100 04/04/18 21:34 100 04/04/18 20:18 67 22 04/04/18 17:13 97.9 F 65 20 138/78 98 04/04/18 12:13 98.3 F 63 22 121/77 97 04/04/18 10:00 97 - Physical Examination General: No Apparent Distress HEENT: Positive: PERRL Cardiac: Positive: Reg Rate and Rhythm Lungs: Positive: Decreased Breath Sounds Neuro: Positive: Grossly Intact
[2018-04-05] MEDS: LOVENOX SUB-Q SCH (11:11)
[2018-04-05] MEDS: HCTZ PO SCH (11:13)
[2018-04-05] MEDS: ZESTRIL PO SCH (11:13)
[2018-04-05] MEDS: NORVASC PO SCH (11:13)
[2018-04-05] MEDS: SODIUM CHLORIDE FLUSH SYRINGE 10 ML IV SCH (11:14)
--- NOTE | 2018-04-05 14:55 | Vascular Lab Report ---
Left Lower Extremity Venous Duplex Study: Reason for Exam: Pain and swelling of the left lower extremity. Comments on the Right: A limited duplex study was done of the proximal veins of the right lower extremity. All veins visualized are freely compressible without evidence of internal echogenicity. Flow is spontaneous and phasic throughout. No evidence of acute or chronic thrombus is seen in any of the vessels visualized. Comments on the Left: Q.d. venous thrombosis is seen in the superficial femoral vein extending from the upper third down to the posterior tibial vein and into the peroneal and posterior tibial veins. The remaining veins visualized are freely compressible without evidence of internal echogenicity. Spontaneous and phasic flow is present proximally. Impression: Extensive acute deep venous thrombosis in the left lower extremity.
--- NOTE | 2018-04-05 18:42 | Progress Note ---
Assessment and Plan Assessment and plan: --First degree AV block with short pauses, Patient had episodes first-degree AV block with short pauses, being evaluated by cardiology, Follow cardiology recommendations --Bilateral pulmonary embolism; Lovenox full dose, no vascular intervention indicated Start oral anticoagulants per hematology when patient is stable, follow hypercoagulable workup --Left Lower extremity DVT; Continue anticoagulation, choice of oral anticoagulants per hematology Will start oral anticoagulation when cardiac issues are stabilized --Acute hypoxic respiratory failure; secondary to bilateral PE Oxygen titrated to O2 sats more than 90%, nebulizers as needed --Hypertension; well controlled --DVT prophylaxis; patient already on heparin drip --Ongoing tobacco use; smoking cessation counseling, nicotine patch as needed Disposition; follow cardiology recommendations, switch to Eliquis/Coumadin When medically stable History Interval history: Patient seen and examined medical records reviewed Patient feels better no new complaints Some variable AV block is being evaluated by cardiology Patient feels better vital signs reviewed Hospitalist Physical - Constitutional Vitals: Temp Pulse Resp BP Pulse Ox 98.5 F 65 20 120/69 95 04/05/18 12:00 04/05/18 12:00 04/05/18 12:00 04/05/18 12:00 04/05/18 12:00 General appearance: Present: no acute distress, obese - EENT Eyes: Present: PERRL, EOM intact - Neck Neck: Present: supple, normal ROM - Respiratory Respiratory effort: normal Respiratory: bilateral: diminished, rhonchi, negative: rales, wheezing - Cardiovascular Rhythm: regular Heart Sounds: Present: S1 & S2 - Extremities Extremities: no ischemia, No edema - Abdominal General gastrointestinal: soft, non-tender, non-distended, normal bowel sounds - Integumentary Integumentary: Present: clear, warm - Psychiatric Psychiatric: appropriate mood/affect, cooperative - Neurologic Neurologic: CNII-XII intact, moves all extremities Results - Labs CBC & Chem 7: 04/02/18 09:26 04/03/18 00:37 Labs: Laboratory Last Values WBC 6.0 K/mm3 (4.5-11.0) 04/02/18 09:26 RBC 4.01 M/mm3 (3.65-5.03) 04/02/18 09:26 Hgb 13.3 gm/dl (11.8-15.2) 04/02/18 09:26 Hct 38.3 % (35.5-45.6) 04/02/18 09: MCV 96 fl (84-94) H 04/02/18 09: MCH 33 pg (28-32) H 04/02/18 09: MCHC 35 % (32-34) H 04/02/18 09: RDW 15.3 % (13.2-15.2) H 04/02/18 09:26 Plt Count 169 K/mm3 (140-440) 04/02/18 09:26 Lymph % (Auto) 32.8 % (13.4-35.0) 04/02/18 09: [place] % (Auto) 11.3 % (0.0-7.3) H 04/02/18 09: Eos % (Auto) 3.1 % (0.0-4.3) 04/02/18 09: Baso % (Auto) 1.0 % (0.0-1.8) 04/02/18 09: Lymph # 2.0 K/mm3 (1.2-5.4) 04/02/18 09: [place] # 0.7 K/mm3 (0.0-0.8) 04/02/18 09: Eos # 0.2 K/mm3 (0.0-0.4) 04/02/18 09: Baso # 0.1 K/mm3 (0.0-0.1) 04/02/18 09: Seg Neutrophils % 51.8 % (40.0-70.0) 04/02/18 09: Seg Neutrophils # 3.1 K/mm3 (1.8-7.7) 04/02/18 09:26 ESR 60 mm/Hr (0-20) 04/04/18 09:53 PT 13.1 Sec. (12.2-14.9) 04/02/18 09: INR 0.95 (0.87-1.13) 04/02/18 09: APTT 36.2 Sec. (24.2-36.6) 04/02/18 09:26 D-Dimer 4784.41 ng/mlDDU (0-234) H 04/02/18 09:26 Sodium 138 mmol/L (137-145) 04/03/18 00:37 Potassium 4.2 mmol/L (3.6-5.0) 04/03/18 00:37 Chloride 101.1 mmol/L (98-107) 04/03/18 00:37 Carbon Dioxide 23 mmol/L (22-30) 04/03/18 00:37 Anion Gap 18 mmol/L 04/03/18 00:37 BUN 12 mg/dL (9-20) 04/03/18 00:37 Creatinine 0.9 mg/dL (0.8-1.5) 04/03/18 00:37 Estimated GFR > 60 ml/min 04/03/18 00:37 BUN/Creatinine Ratio 13 % 04/03/18 00:37 Glucose 128 mg/dL (75-100) H 04/03/18 00:37 Calcium 9.3 mg/dL (8.4-10.2) 04/03/18 00:37 Magnesium 1.70 mg/dL (1.7-2.3) 04/03/18 00:37 Total Bilirubin 0.40 mg/dL (0.1-1.2) 04/02/18 09:26 AST 13 units/L (5-40) 04/02/18 09:26 ALT 12 units/L (7-56) 04/02/18 09:26 Alkaline Phosphatase 89 units/L (35-129) 04/02/18 09:26 Troponin T < 0.010 ng/mL (0.00-0.029) 04/02/18 09:26 Total Protein 7.4 g/dL (6.3-8.2) 04/02/18 09:26 Albumin 4.0 g/dL (3.9-5) 04/02/18 09:26 Albumin/Globulin Ratio 1.2 % 04/02/18 09:26 Triglycerides 98 mg/dL (2-149) 04/02/18 09:26 Cholesterol 282 mg/dL (50-199) H 04/02/18 09:26 LDL Cholesterol Direct 232 mg/dL (50-130) H 04/02/18 09:26 HDL Cholesterol 38 mg/dL (40-59) L 04/02/18 09:26 Cholesterol/HDL Ratio 7.42 % 04/02/18 09:26 TSH 1.930 mlU/mL (0.270-4.200) 04/05/18 15:30
--- NOTE | 2018-04-05 20:19 | Progress Note ---
Assessment and Plan - Patient Problems (1) Acute deep vein thrombosis (DVT) of left lower extremity Current Visit: Yes Status: Acute Plan to address problem: see notes. (2) Bilateral pulmonary embolism Current Visit: Yes Status: Acute Plan to address problem: See notes/orders. Subjective Date of service: 04/05/18 Interval history: patient seen, resting in bed, labs reviewed, case discussed. Objective - Constitutional Vitals: Vital Signs - 12hr 04/05/18 04/05/18 04/05/18 10:00 11:13 12:00 Temperature 98.5 F Pulse Rate 68 65 Respiratory 20 Rate Blood Pressure 120/80 120/69 O2 Sat by Pulse 99 95 Oximetry General appearance: Present: mild distress, well-nourished - EENT Eyes: PERRL, EOM intact ENT: hearing intact, clear oral mucosa Ears: bilateral: normal - Neck Neck: supple, normal ROM - Respiratory Respiratory: bilateral: rhonchi - Breasts Breasts: deferred - Cardiovascular Rhythm: regular Heart Sounds: Present: S1 & S2. Absent: gallop, rub Extremities: pulses intact, No edema, normal color, Full ROM - Gastrointestinal General gastrointestinal: Present: soft, non-tender, non-distended, normal bowel sounds Rectal Exam: deferred - Genitourinary Male genitourinary: deferred - Integumentary Integumentary: clear, warm, dry - Musculoskeletal Musculoskeletal: 1, strength equal bilaterally - Neurologic Neurologic: moves all extremities - Psychiatric Psychiatric: memory intact, appropriate mood/affect, intact judgment & insight - Labs CBC & Chem 7: 04/02/18 09:26 04/03/18 00:37
[2018-04-06] MEDS: SODIUM CHLORIDE FLUSH SYRINGE 10 ML IV SCH ×3 (03:26→23:02)
--- NOTE | 2018-04-06 09:38 | Progress Note ---
Assessment and Plan Acute PE/DVT Hypertension Wen[place]bach AV block pt remains asymptomatic normal TSH Tobacco abuse Obesity Echocardiogram reports evidence of mild dilatation of the aortic root. Normal left ventricular systolic function, ejection fraction 60-65%. Recommend: Avoid AV dandre blocking agents. Otherwise, conservative cardiac management. Subjective Date of service: 04/06/18 Interval history: Patient has no cardiac complaints. Wants to go home. Objective Vital Signs Temp Pulse Resp BP Pulse Ox 04/06/18 05:13 98.9 F 66 16 104/65 100 04/06/18 04:50 16 04/05/18 22:00 100 04/05/18 21:58 98.4 F 65 16 118/68 94 04/05/18 12:00 98.5 F 65 20 120/69 95 04/05/18 11:13 68 120/80 04/05/18 10:00 99 - Physical Examination General: No Apparent Distress HEENT: Positive: PERRL Cardiac: Positive: Reg Rate and Rhythm Lungs: Positive: Decreased Breath Sounds Neuro: Positive: Grossly Intact
[2018-04-06] MEDS: LOVENOX SUB-Q SCH ×3 (09:47→23:01)
[2018-04-06] MEDS: NORVASC PO SCH (09:47)
[2018-04-06] MEDS: NORCO 5/325 PO PRN (09:48)
[2018-04-06] MEDS: ZESTRIL PO SCH (09:48)
[2018-04-06] MEDS: HCTZ PO SCH (09:48)
--- NOTE | 2018-04-06 13:20 | Progress Note ---
Assessment and Plan Assessment and plan: --Wenchebach AV block Cardiology recommends avoiding AV dandre blocking agents. Otherwise, conservative cardiac management. --Bilateral pulmonary embolism; Lovenox full dose, no vascular intervention indicated Start eliquis if okay with hematology --Left Lower extremity DVT; Start eliquis if ok with Heme --Acute hypoxic respiratory failure; secondary to bilateral PE Oxygen titrated to O2 sats more than 90%, nebulizers as needed --Hypertension; well controlled --DVT prophylaxis;SC Lovenox --Ongoing tobacco use; smoking cessation counseling, nicotine patch as needed Disposition; follow cardiology recommendations, switch to Eliquis/Coumadin When medically stable History Interval history: No new issues overnight. Hospitalist Physical - Constitutional Vitals: Temp Pulse Resp BP Pulse Ox 98.6 F 63 20 117/62 94 04/06/18 11:15 04/06/18 11:15 04/06/18 11:15 04/06/18 11:15 04/06/18 11:15 General appearance: Present: no acute distress, obese - EENT Eyes: Present: PERRL, EOM intact ENT: hearing intact, clear oral mucosa, dentition normal - Neck Neck: Present: supple, normal ROM - Respiratory Respiratory effort: normal Respiratory: bilateral: CTA - Cardiovascular Rhythm: regular Heart Sounds: Present: S1 & S2. Absent: gallop, rub - Extremities Extremities: no ischemia, No edema, Full ROM - Abdominal General gastrointestinal: soft, non-tender, non-distended, normal bowel sounds - Integumentary Integumentary: Present: clear, warm, dry - Neurologic Neurologic: CNII-XII intact, moves all extremities Results - Labs CBC & Chem 7: 04/02/18 09:26 04/03/18 00:37 Labs: Laboratory Last Values WBC 6.0 K/mm3 (4.5-11.0) 04/02/18 09:26 RBC 4.01 M/mm3 (3.65-5.03) 04/02/18 09:26 Hgb 13.3 gm/dl (11.8-15.2) 04/02/18 09:26 Hct 38.3 % (35.5-45.6) 04/02/18 09:26 MCV 96 fl (84-94) H 04/02/18 09:26 MCH 33 pg (28-32) H 04/02/18 09:26 MCHC 35 % (32-34) H 04/02/18 09:26 RDW 15.3 % (13.2-15.2) H 04/02/18 09:26 Plt Count 169 K/mm3 (140-440) 04/02/18 09:26 Lymph % (Auto) 32.8 % (13.4-35.0) 04/02/18 09:26 Florence % (Auto) 11.3 % (0.0-7.3) H 04/02/18 09:26 Eos % (Auto) 3.1 % (0.0-4.3) 04/02/18 09: Baso % (Auto) 1.0 % (0.0-1.8) 04/02/18 09: Lymph # 2.0 K/mm3 (1.2-5.4) 04/02/18 09: Florence # 0.7 K/mm3 (0.0-0.8) 04/02/18 09: Eos # 0.2 K/mm3 (0.0-0.4) 04/02/18 09:26 Baso # 0.1 K/mm3 (0.0-0.1) 04/02/18 09:26 Seg Neutrophils % 51.8 % (40.0-70.0) 04/02/18 09: Seg Neutrophils # 3.1 K/mm3 (1.8-7.7) 04/02/18 09:26 ESR 60 mm/Hr (0-20) 04/04/18 09:53 PT 13.1 Sec. (12.2-14.9) 04/02/18 09:26 INR 0.95 (0.87-1.13) 04/02/18 09:26 APTT 36.2 Sec. (24.2-36.6) 04/02/18 09:26 D-Dimer 4784.41 ng/mlDDU (0-234) H 04/02/18 09:26 Sodium 138 mmol/L (137-145) 04/03/18 00:37 Potassium 4.2 mmol/L (3.6-5.0) 04/03/18 00:37 Chloride 101.1 mmol/L (98-107) 04/03/18 00:37 Carbon Dioxide 23 mmol/L (22-30) 04/03/18 00:37 Anion Gap 18 mmol/L 04/03/18 00:37 BUN 12 mg/dL (9-20) 04/03/18 00:37 Creatinine 0.9 mg/dL (0.8-1.5) 04/03/18 00:37 Estimated GFR > 60 ml/min 07 00:37 BUN/Creatinine Ratio 13 % 04/03/18 00:37 Glucose 128 mg/dL (75-100) H 04/03/18 00:37 Calcium 9.3 mg/dL (8.4-10.2) 04/03/18 00:37 Magnesium 1.70 mg/dL (1.7-2.3) 04/03/18 00:37 Total Bilirubin 0.40 mg/dL (0.1-1.2) 04/02/18 09:26 AST 13 units/L (5-40) 04/02/18 09:26 ALT 12 units/L (7-56) 04/02/18 09:26 Alkaline Phosphatase 89 units/L (35-129) 04/02/18 09:26 Troponin T < 0.010 ng/mL (0.00-0.029) 04/02/18 09:26 Total Protein 7.4 g/dL (6.3-8.2) 04/02/18 09:26 Albumin 4.0 g/dL (3.9-5) 04/02/18 09:26 Albumin/Globulin Ratio 1.2 % 04/02/18 09:26 Triglycerides 98 mg/dL (2-149) 04/02/18 09:26 Cholesterol 282 mg/dL (50-199) H 04/02/18 09:26 LDL Cholesterol Direct 232 mg/dL (50-130) H 04/02/18 09:26 HDL Cholesterol 38 mg/dL (40-59) L 04/02/18 09:26 Cholesterol/HDL Ratio 7.42 % 04/02/18 09:26 TSH 1.930 mlU/mL (0.270-4.200) 04/05/18 15:30
--- NOTE | 2018-04-06 19:18 | Progress Note ---
Assessment and Plan - Patient Problems (1) Acute deep vein thrombosis (DVT) of left lower extremity Current Visit: Yes Status: Acute Plan to address problem: see notes. (2) Bilateral pulmonary embolism Current Visit: Yes Status: Acute Plan to address problem: See notes/orders. I have spoken to the primary team today regarding long time anticoagulation, once d/c. Subjective Date of service: 04/06/18 Interval history: patient seen, resting in bed, labs reviewed, case discussed. Patient seen/resting in bed, labs reviewed, no new labs. W/up labs still pending results. Objective - Constitutional Vitals: Vital Signs - 12hr 04/06/18 04/06/18 04/06/18 09:47 09:48 11:15 Temperature 98.6 F Pulse Rate 96 H 69 63 Respiratory 20 Rate Blood Pressure 137/79 137/79 117/62 O2 Sat by Pulse 94 Oximetry 04/06/18 16:37 Temperature 97.3 F L Pulse Rate 57 L Respiratory 20 Rate Blood Pressure 105/62 O2 Sat by Pulse 94 Oximetry General appearance: Present: no acute distress, well-nourished - EENT Eyes: PERRL, EOM intact ENT: hearing intact, clear oral mucosa Ears: bilateral: normal - Neck Neck: supple, normal ROM - Respiratory Respiratory effort: normal Respiratory: bilateral: CTA - Breasts Breasts: deferred - Cardiovascular Rhythm: regular Heart Sounds: Present: S1 & S2. Absent: gallop, rub Extremities: pulses intact, No edema, normal color, Full ROM - Gastrointestinal General gastrointestinal: Present: soft, non-tender, non-distended, normal bowel sounds Rectal Exam: deferred - Genitourinary Male genitourinary: deferred - Integumentary Integumentary: clear, warm, dry - Musculoskeletal Musculoskeletal: 1, strength equal bilaterally - Neurologic Neurologic: moves all extremities - Psychiatric Psychiatric: memory intact, appropriate mood/affect, intact judgment & insight - Labs CBC & Chem 7: 04/02/18 09:26 04/03/18 00:37
[2018-04-06 23:44] VITALS: BP 120/73
--- NOTE | 2018-04-07 08:14 | Progress Note ---
Assessment and Plan Acute PE/DVT Hypertension Wenchebach AV block pt remains asymptomatic normal TSH Tobacco abuse Obesity Echocardiogram reports evidence of mild dilatation of the aortic root. Normal left ventricular systolic function, ejection fraction 60-65%. Recommend: Avoid AV dandre blocking agents. Otherwise, conservative cardiac management. Subjective Date of service: 04/07/18 Interval history: Patient has no cardiac complaints. Objective Vital Signs Temp Pulse Resp BP Pulse Ox 04/06/18 23:10 98.1 F 64 18 120/73 98 04/06/18 16:37 97.3 F L 57 L 20 105/62 94 04/06/18 11:15 98.6 F 63 20 117/62 94 04/06/18 09:48 69 137/79 04/06/18 09:47 96 H 137/79 - Physical Examination General: No Apparent Distress HEENT: Positive: PERRL Cardiac: Positive: Reg Rate and Rhythm Neuro: Positive: Grossly Intact
--- NOTE | 2018-04-07 09:11 | Discharge Summary ---
Providers - Providers Date of Admission: 04/02/18 12:52 Date of discharge: 04/07/18 Attending physician: LESIA EDMONDS 04/02/18 11:16 Consult to Physician [CONS] Urgent Comment: Consulting Provider: LANETTE WU Physician Instructions: Reason For Exam: left leg acute dvt 04/03/18 11:39 Consult to Physician [CONS] Routine Comment: Consulting Provider: SLOANE URIBE Physician Instructions: Reason For Exam: Lencho PE/Lt. DVT 04/04/18 07:06 Consult to Cardiology [CONS] Stat Consulting Provider: NORY CONTRERAS Reason For Exam: 2nd Degree Back Primary care physician: DIAGNOSTIC TECH Hospitalization Reason for admission: PE DVT Condition: Stable Hospital course: 57-year-old male admitted to the emergency room for evaluation of left leg pain and shoulder pain. He underwent a venous ultrasound which revealed deep vein thrombosis of the lower extremity. He has a CT scan of the chest, which reveals pulmonary emboli. The patient was seen by vascular surgery who reported that since the DVT was uncomplicated recommendations were for anticoagulation and no surgical intervention needed. Bilateral subsegmental pulmonary emboli also treated with anticoagulation, there is no evidence of a central embolus no indication for catheter-directed thrombolysis. Hematology recommended Eliquis at discharge. Dedicated discharge time 34 minutes. Disposition: IA-01 TO HOME OR SELFCARE Time spent for discharge: 34 - Discharge Diagnoses (1) Acute deep vein thrombosis (DVT) of left lower extremity Status: Acute (2) Bilateral pulmonary embolism Status: Acute Core Measure Documentation - Palliative Care Palliative Care/ Comfort Measures: Not Applicable - Core Measures Any of the following diagnoses?: DVT/PE - VTE Discharge Requirements Deep Vein Thrombosis/Pulmonary Embolism Present on Admission: Yes Has pt received <5 days of overlap therapy or INR<2.0: Yes (eliquis) Anticoagulant overlap therapy prescribed at discharge: No Contraindication No Overlap Therapy order at DC: Not Indicated Exam - Constitutional Vitals: Temp Pulse Resp BP Pulse Ox 98.1 F 64 18 120/73 98 04/06/18 23:10 04/06/18 23:10 04/06/18 23:10 04/06/18 23:10 04/06/18 23:10 General appearance: Present: no acute distress, well-nourished - EENT Eyes: Present: PERRL ENT: hearing intact, clear oral mucosa - Neck Neck: Present: supple, normal ROM - Respiratory Respiratory effort: normal Respiratory: bilateral: CTA - Cardiovascular Heart Sounds: Present: S1 & S2. Absent: rub, click - Extremities Extremities: pulses symmetrical, No edema Peripheral Pulses: within normal limits - Abdominal General gastrointestinal: Present: soft, non-tender, non-distended, normal bowel sounds Male genitourinary: Present: normal - Integumentary Integumentary: Present: clear, warm, dry - Musculoskeletal Musculoskeletal: gait normal, strength equal bilaterally - Psychiatric Psychiatric: appropriate mood/affect, intact judgment & insight - Neurologic Neurologic: CNII-XII intact, moves all extremities Plan Activity: no restrictions Weight Bearing Status: Weight Bear as Tolerated Diet: regular Follow up with: PRIMARY CARE, [Primary Care Provider] - 3-5 Days SLOANE URIBE DO [Staff Physician] - 7 Days LANETTE WU MD [Staff Physician] - 7 Days Prescriptions: amLODIPine [Norvasc] 10 mg PO DAILY #30 tablet Apixaban [Eliquis] 5 mg PO BID #60 tablet Apixaban [Eliquis] 10 mg PO BID #14 tablet AtorvaSTATin [Lipitor] 40 mg PO QHS #30 tablet HYDROcodone/APAP 5-325 [Hardin 5-325 mg TAB] 1 each PO Q4H PRN #8 tablet PRN Reason: Pain, Moderate (4-6) Lisinopril/Hydrochlorothiazide [Zestoretic 20-25 mg] 1 tab PO DAILY #30 tablet
[2018-04-07] MEDS: LOVENOX SUB-Q SCH (10:10)
[2018-04-07] MEDS: NORVASC PO SCH (10:11)
[2018-04-07] MEDS: ZESTRIL PO SCH (10:11)
[2018-04-07] MEDS: HCTZ PO SCH (10:11)
[2018-04-07] MEDS: SODIUM CHLORIDE FLUSH SYRINGE 10 ML IV SCH (10:12)
[2018-04-07 10:20] LABS: ANA Screen, IFA Negative (Negative)
[2018-04-07 17:59] LABS: Factor V (Leiden) Mutation TNR (())
[2018-04-09 08:30] LABS: Activated Protein C Resistance SEE SCANNED RESULTS; Antithrombin III Antigen SEE SCANNED RESULTS; Cardiolipin Ab IgA SEE SCANNED RESULTS; Cardiolipin Ab IgG SEE SCANNED RESULTS; Cardiolipin Ab IgM SEE SCANNED RESULTS; Interpretation HYPERCOAG PROF SEE SCANNED RESULTS; Protein C Antigen SEE SCANNED RESULTS; Protein S, Free SEE SCANNED RESULTS; Protein S, Total SEE SCANNED RESULTS; dRVVT Screen SEE SCANNED RESULTS
== END 2018-04-07 11:50 | disposition home or self-care (01) | DRG 175 ==
LOC: ED 08:24 → 3A 12:52
PROVIDERS: ADMIT Internal Medicine; ATTEND Hospitalist
DX: I26.99 Other pulmonary embolism without acute cor pulmonale (principal); J96.01 Acute respiratory failure with hypoxia; F17.213 Nicotine dependence, cigarettes, with withdrawal; Z82.49 Family history of ischemic heart disease and other diseases of the circulatory system; E66.9 Obesity, unspecified; I10 Essential (primary) hypertension; Z80.9 Family history of malignant neoplasm, unspecified; E78.5 Hyperlipidemia, unspecified; I44.1 Atrioventricular block, second degree; Z71.6 Tobacco abuse counseling; Z68.36 Body mass index [BMI] 36.0-36.9, adult; I82.442 Acute embolism and thrombosis of left tibial vein; I82.492 Acute embolism and thrombosis of other specified deep vein of left lower extremity
CPT/HCPCS: 36415; 71046; 71275; 74018; 80048; 80053; 80061; 83516; 83735; 84154; 84443; 84484; 85025; 85220; 85301; 85305; 85307; 85379; 85610; 85613; 85652; 85730; 86038; 86147; 93005; 93010; 93306; 94760; 96372; A9270-GY; J1650; Q9967

== ENCOUNTER 2018-04-30 10:55 | Outpatient (CLI) | payer MEDICAID ==
--- NOTE | 2018-04-30 12:24 | XRay Report ---
LUMBOSACRAL SPINE, 5 VIEWS History: Back pain. Findings: There is normal bone mineralization. No evidence for compression deformity, subluxation or bone lesion. Mild degenerative disc disease is noted at L3-4 and L5-S1. Mild diffuse facet arthropathy. Right lateral bridging osteophytes are noted at L1-2 and L2-3. A left lateral bridging osteophyte is noted at L4-5. The oblique images demonstrate no evidence for significant neural foraminal narrowing. Impression: Lumbar spondylosis as described.
== END 2018-04-30 10:56 | disposition home or self-care (01) ==
LOC: XRAY 10:55
PROVIDERS: ATTEND Internal Medicine Hematology & Oncology
DX: M47.897 Other spondylosis, lumbosacral region (principal); I10 Essential (primary) hypertension; F17.290 Nicotine dependence, other tobacco product, uncomplicated
CPT/HCPCS: 72110